=== PATIENT | male | born 1995 | race Caucasian/White ===

== ENCOUNTER 2016-09-08 17:22 | Emergency (ER) | payer MEDICAID ==
[~2016-09-08] VITALS: Ht 172.7 cm; Wt 74.8 kg
[2016-09-08 17:29] VITALS: BP 131/79
== END 2016-09-08 18:55 | disposition home or self-care (01) ==
LOC: ER 17:23
DX: S53.492A Other sprain of left elbow, initial encounter (principal); J45.909 Unspecified asthma, uncomplicated; F17.210 Nicotine dependence, cigarettes, uncomplicated; W19.XXXA Unspecified fall, initial encounter; Y93.89 Activity, other specified; Y92.89 Other specified places as the place of occurrence of the external cause; Y99.8 Other external cause status
CPT/HCPCS: 73080; 99284; A4606; Z7610

== ENCOUNTER 2018-06-09 22:23 | Emergency (ER) | payer MEDICAID ==
[~2018-06-09] VITALS: Ht 167.6 cm; Wt 68.0 kg
[2018-06-09 22:40] VITALS: BP 144/88
--- NOTE | 2018-06-09 22:55 | NUR ---
pt bibself from home c/o a tingling sensation when urinating. per pt statement started x1day ago. pt is a/ox4, verbal, able to make needs known. No s/s of acute distress or sob noted. seen by
[2018-06-09 23:00] LABS: APPEARANCE,URINE CLEAR (CLEAR); BILIRUBIN,URINE NEGATIVE (NEGATIVE); BLOOD, URINE NEGATIVE Ery/uL (NEGATIVE); COLOR,URINE YELLOW (YELLOW); KETONES,URINE NEGATIVE (NEGATIVE); LEUKOCYTE ESTERASE ,URINE NEGATIVE (NEGATIVE); NITRITE, URINE NEGATIVE (NEGATIVE); PH,URINE 7.5 (5.0-8.0); PROTEIN,URINE NEGATIVE (NEGATIVE); UGLUCOSE NEGATIVE (NEGATIVE); UROBILINOGEN,URINE 0.2 EU/dL (0.2)
--- NOTE | 2018-06-09 23:46 | NUR ---
Patient discharged to home in stable condition. Written and verbal after care instructions given. Patient verbalizes understanding of instruction. Patient left on foot with steady gait. No s/s of acute distress or sob noted. VS stable.
== END 2018-06-09 23:25 | disposition home or self-care (01) ==
LOC: ER 22:23
DX: N32.89 Other specified disorders of bladder (principal); J45.909 Unspecified asthma, uncomplicated; F17.200 Nicotine dependence, unspecified, uncomplicated
CPT/HCPCS: 81001; 99283; A4606; Z7610; 81000-TC

== ENCOUNTER 2018-12-10 17:45 | Emergency (ER) | payer MEDICAID ==
[~2018-12-10] VITALS: Ht 170.2 cm; Wt 81.6 kg
[2018-12-10 18:02] VITALS: BP 145/88
--- NOTE | 2018-12-10 18:52 | NUR ---
For discharge Aftercare instructions given-verbalized understanding. Home ambulatory Stable
== END 2018-12-10 18:50 | disposition home or self-care (01) ==
LOC: ER 17:46
DX: F41.9 Anxiety disorder, unspecified (principal); R59.1 Generalized enlarged lymph nodes; R00.0 Tachycardia, unspecified; J45.909 Unspecified asthma, uncomplicated; F17.200 Nicotine dependence, unspecified, uncomplicated